=== PATIENT | male | born 1980 | race Caucasian/White ===

== ENCOUNTER 2016-10-09 10:22 | Emergency (ER) | payer OTHER ==
[2016-10-09 11:13] VITALS: BP 105/87
--- NOTE | 2016-10-09 11:14 | EDM.PDOC ---
ED HPI GENERAL MEDICAL PROBLEM - General Chief Complaint: Upper Extremity Injury/Pain Stated Complaint: R WRIST PAIN Time Seen by Provider: 10/09/16 11:02 Source of Information: Reports: Patient History Limitations: Reports: No Limitations - History of Present Illness INITIAL COMMENTS - FREE TEXT/NARRATIVE: The patient is a 36-year-old male who presents to the ED complaining of right wrist pain. Patient states he awoke this morning with this complaint. States prior to going to bed he didn't have any wrist discomfort. Does not recall hitting his wrist performing any activities that may have caused the pain. 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 Pain is worse with flexion extension and external and internal rotation of the wrist. No pain with palpation. There is no swelling noted. Denies numbness tingling to his fingers as well. Patient's concerned he may have a bony abnormality due of spiking pain. Patient states he is on fentanyl chronically for back issues. Otherwise patient has no additional complaints. Onset: Today, Sudden Duration: Constant Location: Reports: Upper Extremity, Right Quality: Reports: Ache Severity: Mild Improves with: Reports: Rest Worsens with: Reports: Movement Treatments [employer]: Reports: Acetaminophen, NSAIDS Right Wrist Pain Score (Numeric/FACES): 9 - Related Data Allergies Allergy/AdvReac Type Severity Reaction Status Date / Time topiramate [From Topamax] Allergy Other Verified 10/09/16 11:15 Review of Systems - Review of Systems Review Of Systems: ROS reveals no pertinent complaints other than HPI. ED EXAM, GENERAL - Physical Exam Exam: See Below Exam Limited By: No Limitations General Appearance: Alert, WD/WN, No Apparent Distress Ears: Hearing Grossly Normal Nose: Normal Inspection Throat/Mouth: Normal Voice, No Airway Compromise Neck: Normal Inspection, Supple Peripheral Pulses: 2+: Radial (R) Extremities: Normal Inspection, Normal Range of Motion, Non-Tender, No Pedal Edema, Normal Capillary Refill, Other (minimal pain with flexion/extension/ internal rotation/external rotation. No bony antibodies noted. No bruising, swelling, redness noted. No sensory or motor deficits noted.) Neurological: Alert, Oriented, Normal Cognition, No Motor/Sensory Deficits Psychiatric: Normal Affect, Normal Mood Skin Exam: Warm, Dry, Intact, Normal Color Course - Vital Signs Last Recorded V/S: Last Vital Signs Temp 97.9 F 10/09/16 11:12 Pulse 87 10/09/16 11:12 Resp 20 10/09/16 11:12 BP 105/87 10/09/16 11:12 Pulse Ox 99 10/09/16 11:12 - Orders/Labs/Meds Orders: Active Orders 24 hr Category Date Time Status Wrist Comp Min 3V Rt [CR] Stat Exams 10/09/16 11:08 Taken DME for Discharge [COMM] Stat Oth 10/09/16 11:55 Ordered - Re-Assessments/Exams Free Text/Narrative Re-Assessment/Exam: Patient requested x-ray of the right wrist to which has been ordered. 10/09/16 11:46 x-ray of the right wrist did not elicit any acute bony abnormalities. This was reviewed with Dr. Rios. The final interpretation is pending. Will discharge patient home with instructions as documented. Patient has a wrist splint at home But requests a splint in the ED. This has been ordered. Departure - Departure Time of Disposition: 11:47 Disposition: Home, Self-Care 01 Condition: good Clinical Impression: Sprain of wrist, right Qualifiers: Encounter type: initial encounter Qualified Code(s): S63.501A - Unspecified sprain of right wrist, initial encounter - Discharge Information Instructions: Wrist Sprain Referrals: PCP,Not In Area [Primary Care Provider] - Forms: ED Department Discharge Additional Instructions: As discussed, x-ray of the right wrist did not reveal any acute bony abnormalities. Thus suggesting wrist sprain. Treatment is symptomatic care only including wrist splint for the next 5-7 days. Taking off only to wash hands and shower. Refrain from any activities that cause worsening pain. Take Tylenol and Motrin in alternating fashion for pain. Place ice to the affected area as needed for pain relief. Follow up with her primary care provider in the next 7- 10 days for reevaluation if pain persists. Return to the E.D. for any new or worsening symptoms. - My Orders Last 24 Hours: My Active Orders 10/09/16 11:08 Wrist Comp Min 3V Rt [CR] Stat 10/09/16 11:55 DME for Discharge [COMM] Stat - Assessment/Plan Last 24 Hours: My Active Orders 10/09/16 11:08 Wrist Comp Min 3V Rt [CR] Stat 10/09/16 11:55 DME for Discharge [COMM] Stat
--- NOTE | 2016-10-12 09:34 | CR ---
Right wrist: Four views of the right wrist were obtained. Comparison: No previous study. Joint spaces are preserved. No fracture, dislocation or other bony abnormality is seen. Impression: 1. No abnormality is identified on right wrist exam. Diagnostic code #1
== END 2016-10-09 12:00 | disposition home or self-care (01) ==
LOC: JD.ED 10:22
DX: S63.501A Unspecified sprain of right wrist, initial encounter (principal); Z79.899 Other long term (current) drug therapy; X58.XXXA Exposure to other specified factors, initial encounter
CPT/HCPCS: 73110-26-RT; 73110-RT; 99282; 99283